=== PATIENT | male | born 1995 | race Caucasian/White ===

== ENCOUNTER 2022-01-08 20:42 | Emergency (ER) | payer OTHER ==
[2022-01-08 20:51] VITALS: BP 120/70; PULSE 82; TEMP 98; BMI 23.8
[2022-01-08] MEDS ORDERED: KETOROLAC TROMETHAMINE 30 MG/1 ML VIAL IM ONE (21:29)
[2022-01-08] MEDS ORDERED: LIDOCAINE 5% TOPICAL PATCH TP ONE (21:31)
[2022-01-08] MEDS ORDERED: ACETAMINOPHEN 325 MG TABLET (FP) PO ONE (21:33)
[2022-01-08] MEDS ORDERED: diazePAM 5 MG TABLET PO ONE (21:37)
[2022-01-08] MEDS ORDERED: ACETAMINOPHEN 325 MG TABLET (FP) ONE (22:10)
[2022-01-08] MEDS ORDERED: diazePAM 5 MG TABLET ONE (22:10)
[2022-01-08] MEDS ORDERED: KETOROLAC TROMETHAMINE 30 MG/1 ML VIAL ONE (22:11)
[2022-01-08] MEDS ORDERED: LIDOCAINE 5% TOPICAL PATCH ONE (22:11)
[2022-01-08] MEDS ORDERED: LIDOCAINE HCL 1%, 10 MG/ML (50 mL VIAL) SQ ONE (23:59)
[2022-01-09] MEDS ORDERED: LIDOCAINE HCL 1%, 10 MG/ML (20ML VIAL) ONE (00:01)
[2022-01-09] MEDS ORDERED: LIDOCAINE 5% TOPICAL PATCH TP ONE (00:23)
[2022-01-09] MEDS ORDERED: LIDOCAINE 5% TOPICAL PATCH ONE (00:24)
[2022-01-09] MEDS ORDERED: LIDOCAINE PATCH REMOVAL MC SCH ×2 (09:00→22:00)
== END 2022-01-09 01:06 | disposition home or self-care (01) ==
LOC: JER 20:42
PROC: 3E0233Z Introduction of Anti-inflammatory into Muscle, Percutaneous Approach (ICD-10-PCS; principal; 2022-01-08)
DX: M54.42 Lumbago with sciatica, left side (principal)
CPT/HCPCS: 99284-25